=== PATIENT | male | born 1955 | race Caucasian/White ===

== ENCOUNTER → 2017-10-17 07:06 | Outpatient (CLI) | payer OTHER, SELFPAY ==
[2017-10-17 08:00] LABS: Add Manual Diff / Slide Review NO; Basophils Percent Auto 0.4 % (0-2); Eosinophils Percent Auto 3.2 % (2-4); Hematocrit 36.6 % (41-53); Hemoglobin 12.6 g/dL (13.5-17.5); Lymphocytes Percent Auto 18.2 % (25-40); Mean Corpuscular HGB Conc 34.4 % (30-36); Mean Corpuscular Volume 87.3 fL (80-100); Monocytes Percent Auto 9.2 % (3-14); Neutrophils Absolute Auto 2300 /uL (3000-5900); Platelet Count 168 X10^3/uL (150-400); Red Cell Distribution Width 13.9 % (11.6-14.8); White Blood Cell Count 3.3 X10^3/uL (4.5-11.0)
[2017-10-17 08:01] LABS: INR 1.1 (0.9-1.3); Prothrombin Time 11.7 SECONDS (10.1-12.7)
[2017-10-17 08:13] LABS: Alanine Aminotransferase 23 IU/L (21-72); Albumin 4.3 g/dL (3.5-5.0); Albumin Globulin Ratio 1.7 (1.0-2.8); Alkaline Phosphatase 55 U/L (38-126); Aspartate Aminotransferase 21 IU/L (17-59); BUN Creatinine Ratio 25.6 (6-22); Bilirubin Direct 0.3 mg/dL (0.0-0.4); Bilirubin Total 0.6 mg/dL (0.2-1.3); Calcium 8.9 mg/dL (8.4-10.2); Estimated Glomerular Filt Rate > 60.0 mL/min (>60); Globulin 2.6 g/dL (1.7-4.1); Glucose 99 mg/dL (80-110); HEMOLYSIS < 15 (0-50); Potassium 4.3 mmol/L (3.4-5.1); Sodium 141 mmol/L (137-145); Total Protein 6.9 g/dL (6.3-8.2)
== END ==
PROVIDERS: Visit Provider Internal Medicine Gastroenterology
DX: Z94.4 Liver transplant status (principal); Z51.81 Encounter for therapeutic drug level monitoring
CPT/HCPCS: 36415; 80053; 80197; 82248; 85025; 85610